=== PATIENT | male | born 1930 | race Two or more races ===

== ENCOUNTER → 2017-05-05 | Outpatient (CLI) | payer OTHER | END | disposition home or self-care (01) | LOC: Rad HDHVI 11:25 | PROVIDERS: ATTEND Internal Medicine Cardiovascular Disease | DX: I65.9 Occlusion and stenosis of unspecified precerebral artery (principal) | CPT/HCPCS: 93880 ==

== ENCOUNTER → 2017-05-14 | Outpatient (CLI) | payer OTHER ==
[~2017-05-14] VITALS: Ht 177.8 cm; Wt 77.1 kg
[~2017-05-14] MED LIST: ADENOSINE 65 MG in GIVE UN-DILUTED 0 ML IV ONE; ADENOSINE 90 MG/30 ML INJ IV ONE
== END | disposition home or self-care (01) ==
LOC: Rad HDHVI 13:41
PROVIDERS: ATTEND Internal Medicine Cardiovascular Disease
DX: I10 Essential (primary) hypertension (principal); I20.9 Angina pectoris, unspecified; I65.9 Occlusion and stenosis of unspecified precerebral artery
CPT/HCPCS: 78452; 93005; 96374; 96375; A9500; J0153